=== PATIENT | male | born 1990 | race African-American/Black ===

== ENCOUNTER 2017-12-03 14:51 | Emergency (ER) | payer OTHER ==
[~2017-12-03] VITALS: Ht 182.9 cm; Wt 92.0 kg
[2017-12-03] MEDS ORDERED: MOTRIN800 MG PO (17:04)
[2017-12-03] MEDS ORDERED: KEFLEX500 MG PO (17:06)
[2017-12-03] MEDS ORDERED: PERCOCET 5/31 TABLET PO (17:06)
[2017-12-03 17:34] VITALS: BP 135/77
== END 2017-12-03 17:36 ==
LOC: EME 14:51
PROC: 0RSXXZZ Reposition Left Finger Phalangeal Joint, External Approach (ICD-10-PCS; principal; 2017-12-03)
PROC: 3E0234Z Introduction of Serum, Toxoid and Vaccine into Muscle, Percutaneous Approach (ICD-10-PCS; principal; 2017-12-03)
DX: S63.287A Dislocation of proximal interphalangeal joint of left little finger, initial encounter (principal); S61.217A Laceration without foreign body of left little finger without damage to nail, initial encounter; X58.XXXA Exposure to other specified factors, initial encounter; Y93.61 Activity, american tackle football; Z87.891 Personal history of nicotine dependence; Z23 Encounter for immunization
CPT/HCPCS: 73140; 99281; 99284; J0690